=== PATIENT | female | born 1930 | race Caucasian/White ===

== ENCOUNTER → 2016-12-21 | Outpatient (CLI) | payer OTHER | LOC: BHFA 11:15 | PROVIDERS: ATTEND Internal Medicine Interventional Cardiology | DX: I48.91 Unspecified atrial fibrillation (principal); I51.7 Cardiomegaly; I10 Essential (primary) hypertension ==

== ENCOUNTER 2017-01-02 13:52 | Emergency (ER) | payer OTHER ==
--- NOTE | 2017-01-02 14:13 | EDPHY ---
H & P Time Seen by Provider: 01/02/17 14:09 HPI/ROS: Chief complaint. Fall HPI. 87-year-old female with trip and fall just prior to arrival. She was walking on the sidewalk and caught her toe and fell down. She was walking with her grandson who partially caught her but she did strike her right leg on the ground. She did not strike her head or lose consciousness. No neck pain chest pain, back pain, abdominal pain. No injury to arms. She has a large bruise on the right chin ROS Constitutional. no fever/chills, no weakness Eyes. no problems with vision ENT. no sore throat, no nasal drainage Cardiovascular. no chest pain Respiratory. no shortness of breath, no cough Abdominal. no abdominal pain, no nausea/vomiting, no diarrhea . no problems urinating MS. Right patton bruising and swelling Skin. no rash Lymph. no swollen glands Neuro. no headache, no dizziness, no difficulty walking or with speech Past Medical/Surgical History: Patient is on Pradaxa for atrial fibrillation. She has GERD, right knee replacement Social History: nonsmoker no alcohol Smoking Status: Never smoked Physical Exam: General Appearance: Alert pleasant well-developed female mild distress vital signs stable Eyes: Pupils equal and round no pallor or injection. ENT, Mouth: Mucous membranes are moist. Respiratory: There are no retractions, lungs are clear to auscultation. Cardiovascular: Regular rate and rhythm. Gastrointestinal: Abdomen is soft and nontender, no masses, bowel sounds normal. Neurological: Awake and alert, sensory and motor exams grossly normal. Skin: Warm and dry, no rashes. Musculoskeletal: Neck is supple nontender. Extremities large hematoma mid patton right leg. No hip pain, knee pain, ankle pain. Distal motor vascular sensitivity to be intact. Psychiatric: Patient is oriented X 3, there is no agitation. Constitutional: Initial Vital Signs Temperature (C) 36.8 C 01/02/17 14:01 Heart Rate 77 01/02/17 14:01 Respiratory Rate 18 01/02/17 14:01 Blood Pressure 130/78 H 01/02/17 14:01 O2 Sat (%) 92 01/02/17 14:01 O2 Delivery Mode Room Air Allergies/Adverse Reactions: morphine Allergy (Verified 01/13/14 06:08) Penicillins Allergy (Verified 01/13/14 06:08) adhesive tape Allergy (Uncoded 01/13/14 06:08) Home Medications: Medication Instructions Recorded Aspirin [Aspirin 81mg (OTC)] 81 mg PO DAILY 04/18/13 Magnesium Oxide [Magnesium Oxide 400 mg PO DAILY 04/18/13 400 mg (OTC)] Multivitamins [Tab-A-Caroline] 1 each PO DAILY 04/18/13 Pharmacy Completed 04/18/13 04/18/13 Reconciled 04/18 04/18/13 Vit C/Dl-E AC/Lut/Copper/Znox 1 each PO DAILY 04/18/13 [Preservision Softgel] Vitamin D. 1 tab PO Q7D 04/18/13 Peg 3350/Na Sulf,Bicarb,Cl/KCl 4,000 ml PO CONT #4000 btl 06/21/13 [Golytely (RX)] Pradaxa 06/21/13 Clindamycin HCl [Cleocin] 450 mg PO TID #30 cap 01/12/14 Albuterol [Proventil Inhaler HFA 2 puffs IH Q4 PRN #1 mdi 09/01/14 (*)] Pantoprazole Sodium 01/02/17 Medical Decision Making - Diagnostics Imaging Results: X-ray tibia and fibula interpreted by me is normal ED Course/Re-evaluation: Re-evaluation 2:50 p.m.. The patient, her son and grandson and I discussed imaging study results, treatment plan including criteria for return importance of follow-up and further evaluation. They expressed understanding and agreement Differential Diagnosis: I considered fracture and dislocation. This appears to be a hematoma. No evidence for fracture dislocation Departure - Departure Disposition: Home, Routine, Self-Care Clinical Impression: Contusion of leg Qualifiers: Encounter type: initial encounter Laterality: right Qualified Code(s): S80.11XA - Contusion of right lower leg, initial encounter Condition: Good Instructions: Contusion in Adults (ED) Additional Instructions: Ice next 24-48 hours. Tylenol for discomfort. Activity as tolerated. Return for worsening symptoms. Recheck in 3-4 days if not improved Referrals: Markos Cao MD [Primary Care Provider] - 3-4 days, if not improved
[2017-01-02 15:02] VITALS: BP 137/78; PULSE 71; RESP 16; TEMP 98.4; O2SAT 88
== END 2017-01-02 15:01 | disposition home or self-care (01) ==
DX: S80.11XA Contusion of right lower leg, initial encounter (principal); Z79.82 Long term (current) use of aspirin; W01.0XXA Fall on same level from slipping, tripping and stumbling without subsequent striking against object, initial encounter; Y93.01 Activity, walking, marching and hiking

== ENCOUNTER 2017-01-29 13:32 | Emergency (ER) | payer OTHER ==
[2017-01-29 13:41] VITALS: RESP 16; TEMP 97.7
--- NOTE | 2017-01-29 14:02 | EDPHY ---
HPI/HX/ROS/PE/MDM Narrative: CHIEF COMPLAINT: Right leg pain and swelling HPI: The patient is an anticoagulated 87 y/o female, with a history of atrial fibrillation, arriving with her son complaining of persistent right leg pain and swelling secondary to a fall about 1 month ago on 01/02/17. She was evaluated at the ED at that time and subsequently assessed by her PCP with instructions to monitor it for improvement. Compared to the picture her son shared with me, the hematoma and ecchymosis has significantly improved. She denies fever, calf pain, dyspnea, chest pain, weakness, numbness, or other symptoms. REVIEW OF SYSTEMS: Aside from elements discussed in the HPI, a comprehensive 10-point review of systems was reviewed and is negative. PMH: Atrial fibrillation - Pradaxa; GERD; Right knee replacement. Prior medical records reviewed including ED visit 01/02/17 for fall. SOCIAL HISTORY: Son at bedside. Lives at assisted living facility PCP: Dr. Cao PHYSICAL EXAM: General:Patient is alert, in no acute distress. ENT:Eyes are normal to inspection. ENT inspection normal. Neck: Normal inspection. Full range of motion. Respiratory:No respiratory distress. Cardiovascular: Strong peripheral pulses. Normal cap refill. Abdomen:The abdomen is nontender to palpation. There are no peritoneal signs. Back: Normal to inspection. No tenderness to palpation. Skin: Normal color. No rash. Warm and dry. Extremities: Large 1.5" diameter hematoma to right anterolateral lower leg. Other extremities are normal in appearance. Full range of motion. Neuro: Oriented x3. Normal motor function. Normal sensory function. ED Course: CBC and tib/fib x-ray ordered. No fracture identified on x-ray. MDM: This patient presents with swelling to her lateral right leg. Given her history of Pradaxa use, I highly suspect this represents a hematoma that has yet to resolve. There is no surrounding erythema to suggest cellulitis, and the patient's WBC is normal, making this further unlikely. I am very hesitant to drain this hematoma given patient's age and co-morbidities as well as presence of nearby knee prosthesis. I think the patient would benefit from close outpatient follow-up with her PCP. - Data Points Imaging Results: Imaging Impressions Tibia/Fibula X-Ray 01/29/17 14:01 Impression: 1. Negative for acute osseous abnormality. The knee arthroplasty is stable in appearance. 2. Persistent soft tissue swelling presumably represents a hematoma. Imaging: I viewed and interpreted images myself Laboratory Results: Laboratory Results 01/29/17 14:23 01/29/17 14:23 WBC 7.55 10^3/uL 10^3/uL (3.80-9.50) RBC 4.82 10^6/uL 10^6/uL (4.18-5.33) Hgb 13.7 g/dL g/dL (12.6-16.3) Hct 41.5 % % (38.0-47.0) MCV 86.1 fL fL (81.5-99.8) MCH 28.4 pg pg (27.9-34.1) MCHC 33.0 g/dL g/dL (32.4-36.7) RDW 13.7 % % (11.5-15.2) Plt Count 216 10^3/uL 10^3/uL (150-400) MPV 10.2 fL fL (8.7-11.7) Neut % (Auto) 55.8 % % (39.3-74.2) Lymph % (Auto) 31.8 % % (15.0-45.0) [place] % (Auto) 7.8 % % (4.5-13.0) Eos % (Auto) 3.0 % % (0.6-7.6) Baso % (Auto) 1.3 % % (0.3-1.7) Nucleat RBC Rel Count 0.0 % % (0.0-0.2) Absolute Neuts (auto) 4.21 10^3/uL 10^3/uL (1.70-6.50) Absolute Lymphs (auto) 2.40 10^3/uL 10^3/uL (1.00-3.00) Absolute Monos (auto) 0.59 10^3/uL 10^3/uL (0.30-0.80) Absolute Eos (auto) 0.23 10^3/uL 10^3/uL (0.03-0.40) Absolute Basos (auto) 0.10 10^3/uL 10^3/uL (0.02-0.10) Absolute Nucleated RBC 0.00 10^3/uL 10^3/uL (0-0.01) Immature Gran % 0.3 % % (0.0-1.1) Immature Gran # 0.02 10^3/uL 10^3/uL (0.00-0.10) General Time Seen by Provider: 01/29/17 13:44 Initial Vital Signs: Initial Vital Signs Temperature (C) 36.5 C 01/29/17 13:39 Heart Rate 68 01/29/17 13:39 Respiratory Rate 16 01/29/17 13:39 Blood Pressure 131/75 H 01/29/17 13:39 O2 Sat (%) 94 01/29/17 13:39 O2 Delivery Mode Room Air Allergies/Adverse Reactions: morphine Allergy (Verified 01/13/14 06:08) Penicillins Allergy (Verified 01/13/14 06:08) adhesive tape Allergy (Uncoded 01/13/14 06:08) Home Medications: Medication Instructions Recorded Aspirin [Aspirin 81mg (OTC)] 81 mg PO DAILY 04/18/13 Magnesium Oxide [Magnesium Oxide 400 mg PO DAILY 04/18/13 400 mg (OTC)] Multivitamins [Tab-A-Caroline] 1 each PO DAILY 04/18/13 Vit C/Dl-E AC/Lut/Copper/Znox 1 each PO DAILY 04/18/13 [Preservision Softgel] Vitamin D. 1 tab PO Q7D 04/18/13 Peg 3350/Na Sulf,Bicarb,Cl/KCl 4,000 ml PO CONT #4000 btl 06/21/13 [Golytely (RX)] Pradaxa 06/21/13 Albuterol [Proventil Inhaler HFA 2 puffs IH Q4 PRN #1 mdi 09/01/14 (*)] Departure - Departure Disposition: Home, Routine, Self-Care Clinical Impression: Hematoma of right lower extremity Qualifiers: Encounter type: initial encounter Qualified Code(s): S80.11XA - Contusion of right lower leg, initial encounter Condition: Good Instructions: Contusion in Adults (ED), Hematoma (ED) Additional Instructions: Follow up with your primary care provider for continued symptoms. Return to the ED for chest pain, shortness of breath, fever, calf pain, or other worsening of condition. Referrals: Markos Cao MD [Primary Care Provider] - As per Instructions Report Scribed for: Russ Herbert Report Scribed by: Cadence Fernandez Date of Report: 01/29/17 Time of Report: 14:02 Physician Review and Approval Statement: Portions of this note were transcribed by an ED scribe. I personally performed the history, physical exam, and medical decision making; and confirm the accuracy of the information in the transcribed note.
[2017-01-29 14:33] LABS: % IMMATURE GRANULYOCYTES 0.3 % (0.0-1.1); ABSOLUTE IMMATURE GRANULOCYTES 0.02 10^3/uL (0.00-0.10); ADD DIFF? NO; ADD MORPH? NO; ADD SCAN? NO; ATYPICAL LYMPHOCYTE FLAG 10 (0-99); FRAGMENT RBC FLAG 0 (0-99); HEMATOCRIT 41.5 % (38.0-47.0); HEMOGLOBIN 13.7 g/dL (12.6-16.3); LEFT SHIFT FLG 0 (0-99); LIPEMIA HEMOLYSIS FLAG 80 (0-99); MEAN CELL HEMOGLOBIN 28.4 pg (27.9-34.1); MEAN CELL VOLUME 86.1 fL (81.5-99.8); MEAN PLATELET VOLUME 10.2 fL (8.7-11.7); PLATELET CLUMPS FLAG 40 (0-99); PLATELET COUNT 216 10^3/uL (150-400); RED BLOOD CELL COUNT 4.82 10^6/uL (4.18-5.33); RED CELL DISTRIBUTION WIDTH 13.7 % (11.5-15.2)
[2017-01-29 14:49] VITALS: BP 131/73; PULSE 61; O2SAT 91
== END 2017-01-29 14:49 | disposition home or self-care (01) ==
DX: S80.11XD Contusion of right lower leg, subsequent encounter (principal); Z79.82 Long term (current) use of aspirin; W19.XXXD Unspecified fall, subsequent encounter